=== PATIENT | male | born 2000 | race African-American/Black ===

== ENCOUNTER 2024-07-30 20:24 | Emergency (ER) | payer OTHER ==
[2024-07-30 20:51] VITALS: BP 115/73; PULSE 61; RESP 16; TEMP 98.6; BMI 26.6
[2024-07-30] MEDS ORDERED: FAMOTIDINE 20 MG/50 ML IVPB 20 MG/50 ML MG IVPB ONE (21:27)
[2024-07-30] MEDS ORDERED: ACETAMINOPHEN INJECTION 100 ML ONE (21:27)
[2024-07-30] MEDS ORDERED: MAG HYDROX/AL HYDROX/SIMETH 30 ML UNIT-DOSE CUP ONE (21:27)
[2024-07-30] MEDS: MAG HYDROX/AL HYDROX/SIMETH 30 ML UNIT-DOSE CUP PO ONE (21:47)
[2024-07-30] MEDS: FAMOTIDINE 20 MG/50 ML IVPB 20 MG/50 ML MG IVPB ONE (21:47)
[2024-07-30] MEDS: ACETAMINOPHEN 1000 MG/100 ML BAG IVPB ONE (21:47)
[2024-07-30 21:48] LABS: ABSOLUTE IMMATURE GRANULOCYTES 0.01 x10^3/uL (0.0-0.031); EOSINOPHIL % 1.6 % (0.8-7.0); EOSINOPHILS # 0.07 x10^3/uL (0.04-0.54); MCHC 35.6 g/dl (32.3-36.5); RDW 13.9 % (11.9-15.3)
[2024-07-30 21:49] LABS: BASOPHILS # 0.04 x10^3/uL (0.01-0.08); HEMATOCRIT 43.5 % (40.1-51.0); HEMOGLOBIN 15.5 g/dL (13.7-17.5); MEAN CELL VOLUME 78.2 fl (79.0-92.2); MEAN PLT VOLUME 9.6 fl (9.4-12.4); MONOCYTE # 0.74 x10^3/uL (0.30-0.82); MONOCYTE % 17.2 % (5.3-12.2); PLATELET COUNT 318 x10^3/uL (163-337)
[2024-07-30 22:16] LABS: POTASSIUM 3.9 mmol/L (3.5-5.1)
[2024-07-30 22:18] LABS: CALCIUM 9.7 mg/dL (8.5-10.1)
[2024-07-30 22:20] LABS: ALBUMIN 3.9 g/dl (3.4-5.0); BLOOD UREA NITROGEN 16.4 mg/dL (7-18)
[2024-07-30 22:23] LABS: BILIRUBIN,TOTAL 0.5 mg/dL (0.2-1); CREATININE 1.1 mg/dL (0.55-1.3); TOT PROT 6.8 g/dl (6.4-8.2)
[2024-07-30 23:09] LABS: HCV DIAGNOSTIC IN-HOUSE W/RFLX NON-REACTIVE (NONREACTIVE); HIV INTERPRETATION NEGATIVE (NEGATIVE)
== END 2024-07-30 22:27 | disposition home or self-care (01) ==
LOC: JER 20:24
PROC: 3E033GC Introduction of Other Therapeutic Substance into Peripheral Vein, Percutaneous Approach (ICD-10-PCS; principal; 2024-07-30)
PROC: 3E033NZ Introduction of Analgesics, Hypnotics, Sedatives into Peripheral Vein, Percutaneous Approach (ICD-10-PCS; 2024-07-30)
DX: R07.2 Precordial pain (principal)
CPT/HCPCS: 36415; 71046-TC-FY; 80053; 83690; 84484; 85025; 86803; 87389; 93005; 93010; 99285-25; J0131